=== PATIENT | male | born 1945 | race Caucasian/White ===

== ENCOUNTER 2022-08-05 17:10 | Emergency (ER) | payer MEDICARE, BC ==
[~2022-08-05] VITALS: Ht 193 cm; Wt 128.2 kg
[~2022-08-05 17:10] MED LIST: ASPI-611 PO; FENO135C3 PO; NITR0.4T48 SL; ROSU40TA PO; SILD50TA PO; [UNRECOGNIZED DRUG - CODE] PO
[2022-08-05 17:35] LABS: BASOPHILS # (AUTO) 0.1 X10'3 (0-0.2); BASOPHILS % (AUTO) 1.3 % (0-1); EOSINOPHILS # (AUTO) 0.2 X10'3 (0-0.9); EOSINOPHILS % (AUTO) 2.5 % (0-6); HEMATOCRIT 51.8 % (42.0-52.0); HEMOGLOBIN 17.4 g/dl (14.0-17.9); LYMPHOCYTES # (AUTO) 1.4 X10'3 (1.1-4.8); LYMPHOCYTES % (AUTO) 16.4 % (21-51); MEAN CORPUSCULAR HEMOGLOBIN 30.7 PG (27.0-31.0); MEAN CORPUSCULAR HGB CONC 33.6 g/dL (33.0-36.5); MEAN CORPUSCULAR VOLUME 91.3 FL (78-98); MEAN PLATELET VOLUME 7.1 FL (7.4-10.4); MONOCYTES # (AUTO) 0.9 X10'3 (0-0.9); NEUTROPHILS # (AUTO) 6.1 X10'3 (1.8-7.7); NEUTROPHILS % (AUTO) 69.8 % (42-75); PLATELET COUNT 260 X10'3 (140-440); RED BLOOD COUNT 5.67 X10'6 (4.70-6.10); RED CELL DISTRIBUTION WIDTH 14.6 % (11.5-14.5); WHITE BLOOD COUNT 8.7 X10'3 (4.5-11.0)
[2022-08-05 17:52] LABS: ALANINE AMINOTRANSFERASE 16 U/L (12-78); ALBUMIN/GLOBULIN RATIO 0.7 (1.1-1.5); ALKALINE PHOSPHATASE 97 IU/L (46-116); ANION GAP 5 (8-16); ASPARTATE AMINO TRANSFERASE 13 U/L (10-37); BILIRUBIN,TOTAL 0.8 MG/DL (0.1-1.0); BLOOD UREA NITROGEN 13 MG/DL (7-18); BUN/CREATININE RATIO 14.8 (10.0-20.0); CHLORIDE 105 MMOL/L (99-107); CREATININE 0.88 MG/DL (0.60-1.10); GLUCOSE 119 MG/DL (70-104); POTASSIUM 3.6 MMOL/L (3.5-5.1); SODIUM 142 MMOL/L (135-145); TOTAL CARBON DIOXIDE 31.8 MMOL/L (24-32); TOTAL PROTEIN 7.1 G/DL (6.4-8.2); eGFR 84 ML/MIN
[2022-08-05 17:57] LABS: MAGNESIUM 2.2 MG/DL (1.5-2.4)
[2022-08-05] MEDS ORDERED: codeine/proMETHazine 5ml UD syrup PO ONE (20:30)
[2022-08-05] MEDS ORDERED: acetaminophen/codeine 120mg/12mg per 5ml UD cup PO ONE (20:40)
[2022-08-05] MEDS ORDERED: CODE120S2 PO (21:27)
[2022-08-05 21:36] VITALS: BP 148/84
== END 2022-08-05 21:37 | disposition home or self-care (01) ==
LOC: ER 17:11
DX: R07.9 Chest pain, unspecified (principal); R05.9 Cough, unspecified; Z79.899 Other long term (current) drug therapy; Z79.1 Long term (current) use of non-steroidal anti-inflammatories (NSAID); Z79.2 Long term (current) use of antibiotics
CPT/HCPCS: 36415; 71045; 80053; 83735; 83880; 84484; 85025; 93005; 99285